=== PATIENT | male | born 1965 | race Two or more races ===

== ENCOUNTER 2018-05-31 23:57 | Emergency (ER) | payer OTHER ==
[~2018-05-31] VITALS: Ht 167.6 cm; Wt 98.4 kg
--- NOTE | 2018-06-01 00:08 | NUR ---
Dr. Golden at bedside for MSE.
[2018-06-01] MEDS ORDERED: PANTOPRAZOLE SODIUM IV 40 MG in IV DEXTROSE 5% 100 ML IV ONE (00:15)
[2018-06-01] MEDS ORDERED: KETOROLAC TROMETHAMINE 30 MG INJ IVP ONE (00:15)
[2018-06-01] MEDS ORDERED: ONDANSETRON IV *ER 4 MG/2 ML VIAL IV ONE (00:15)
[2018-06-01] MEDS ORDERED: ONDANSETRON 4 MG/2 ML VIAL ONE (00:23)
[2018-06-01] MEDS ORDERED: KETOROLAC TROMETHAMINE 30 MG INJ ONE (00:23)
[2018-06-01] MEDS ORDERED: PANTOPRAZOLE SODIUM 40 MG VIAL ONE (00:23)
[2018-06-01] MEDS ORDERED: FLUT1BLS IH (00:30)
[2018-06-01] MEDS ORDERED: GABA-534 PO (00:30)
[2018-06-01] MEDS ORDERED: LORA-980 PO (00:30)
[2018-06-01] MEDS ORDERED: BACL10TA PO (00:30)
[2018-06-01] MEDS ORDERED: OMEP20CA10 PO (00:30)
[2018-06-01] MEDS ORDERED: HYDR25TA4 PO (00:30)
--- NOTE | 2018-06-01 00:35 | NUR ---
Xray at bedside.
--- NOTE | 2018-06-01 00:45 | NUR ---
Ultrasound at bedside.
[2018-06-01 00:58] LABS: CREATININE 1.3 mg/dL (0.6-1.3); POTASSIUM 3.1 mmol/L (3.5-5.1)
[2018-06-01 00:59] LABS: ETHANOL < 3 MG/DL (0-0)
--- NOTE | 2018-06-01 01:07 | NUR ---
Pt states nausea and vomiting has subsided, but pain still 10/10, still feels like an elephant sitting on his chest.
[2018-06-01 01:08] LABS: BASOPHILS # (AUTO) 0.1 K/uL (0.0-8.0); EOSINOPHILS # (AUTO) 0.2 K/uL (0.0-0.7); EOSINOPHILS % (AUTO) 1.3 % (0.0-7.0); HEMATOCRIT 46.5 % (36.7-47.1); HEMOGLOBIN 16.3 g/dL (12.5-16.3); LYMPHOCYTES # (AUTO) 2.1 K/uL (20.0-40.0); LYMPHOCYTES % (AUTO) 15.7 % (20.5-51.5); MEAN CORPUSCULAR HEMOGLOBIN 32.5 uug (23.8-33.4); MEAN CORPUSCULAR HGB CONC 35 g/dL (32.5-36.3); MEAN CORPUSCULAR VOLUME 92.9 fL (73.0-96.2); MONOCYTES # (AUTO) 0.7 K/uL (2.0-10.0); MONOCYTES % (AUTO) 5.4 % (0.0-11.0); NEUTROPHILS # (AUTO) 10.2 K/uL (1.8-8.9); NEUTROPHILS % (AUTO) 76.6 % (38.5-71.5); PLATELET COUNT (AUTO) 275 K/uL (152-348); WHITE BLOOD COUNT (AUTO) 13.3 K/uL (3.6-10.2)
[2018-06-01 01:09] LABS: LIPASE 115 U/L (73-393)
[2018-06-01 01:10] LABS: BILIRUBIN,DIRECT 0.2 mg/dL (0.0-0.2); BILIRUBIN,TOTAL 0.8 mg/dL (0.2-1.0); TOTAL PROTEIN, SERUM 8.2 g/dL (6.4-8.2)
--- NOTE | 2018-06-01 01:10 | NUR ---
Pt states unable to give urine at the moment.
[2018-06-01] MEDS ORDERED: MAG HYDROX/AL HYDROX/SIMETH 30 ML LIQUID UDC PO ONE (01:15)
[2018-06-01] MEDS ORDERED: LIDOCAINE VISCUS 2% 15 ML UDC MM ONE (01:15)
[2018-06-01] MEDS ORDERED: DICYCLOMINE HCL 10 MG/5 ML UDC LIQ PO ONE (01:15)
[2018-06-01] MEDS ORDERED: LIDOCAINE VISCUS 2% 15 ML UDC ONE (01:19)
[2018-06-01] MEDS ORDERED: DICYCLOMINE HCL 10 MG/5 ML UDC LIQ ONE (01:20)
[2018-06-01] MEDS ORDERED: MAG HYDROX/AL HYDROX/SIMETH 30 ML LIQUID UDC ONE (01:20)
--- NOTE | 2018-06-01 01:27 | NUR ---
Pt provided urine sample, sent to lab.
[2018-06-01] MEDS ORDERED: IV NORMAL SALINE 250 ML IV ONE (01:35)
[2018-06-01] MEDS ORDERED: IOHEXOL 350 100 ML INFUS..BTL ONE (01:35)
[2018-06-01] MEDS ORDERED: SWABABLE VALVE TRANSFER SET EA MC ONE (01:35)
--- NOTE | 2018-06-01 01:56 | NUR ---
Pt out of ER for CT.
[2018-06-01 02:19] LABS: *AMPHETAMINE, URINE NEGATIVE (NEGATIVE); *BARBITURATE, URINE NEGATIVE (NEGATIVE); *CANNABINOID, URINE POSITIVE (NEGATIVE); *COCCAINE, URINE NEGATIVE (NEGATIVE); *OPIATE, URINE NEGATIVE (NEGATIVE); *PHENCYCLIDINE SCREEN,URINE NEGATIVE (NEGATIVE)
--- NOTE | 2018-06-01 02:20 | NUR ---
Pt back to ER from CT.
[2018-06-01] MEDS ORDERED: METOCLOPRAMIDE HCL 10 MG/2 ML VIAL ONE (02:29)
[2018-06-01] MEDS ORDERED: MORPHINE SULFATE 2 MG/1 ML DISP.SYRIN IV ONE (02:30)
[2018-06-01] MEDS ORDERED: MORPHINE SULFATE 2 MG/1 ML DISP.SYRIN ONE (02:30)
[2018-06-01] MEDS ORDERED: METOCLOPRAMIDE HCL 10 MG/2 ML VIAL IV ONE (02:30)
--- NOTE | 2018-06-01 02:30 | NUR ---
Harriet herrmann in [facility] - 06/01/18 at 0243 by KAYLA Pt back to ER from CT.
--- NOTE | 2018-06-01 03:26 | NUR ---
Pt in bed, sleeping, no acute signs of distress.
[2018-06-01] MEDS ORDERED: POTASSIUM CHLORIDE 20 MEQ TAB.PRT.SR PO ONE (04:45)
[2018-06-01] MEDS ORDERED: POTASSIUM CHLORIDE 20 MEQ TAB.PRT.SR ONE (04:48)
--- NOTE | 2018-06-01 04:55 | NUR ---
Patient discharged to home in stable conditon. Written and verbal after care instructions given. Patient verbalizes understanding of instructions. Pt ambulated out of ER with steady gait, no acute signs of distress, VSS, all belongings taken, IV site discontinued, pt states feeling so much better than earlier.
[2018-06-01 04:59] VITALS: BP 131/59
== END 2018-06-01 04:59 | disposition home or self-care (01) ==
LOC: ER 06-01 00:02
DX: K80.50 Calculus of bile duct without cholangitis or cholecystitis without obstruction (principal); E87.6 Hypokalemia; F12.10 Cannabis abuse, uncomplicated; R07.89 Other chest pain; I10 Essential (primary) hypertension
CPT/HCPCS: 36415; 70030-TC; 71045; 80307; 83690; 85025; 85730; 93005; A4663; C9113; G0480; J1885; J2270; J2405; J2765; J7050; Q9967